=== PATIENT | female | born 1935 | race Caucasian/White ===

== ENCOUNTER 2020-10-17 09:54 | Inpatient (IN) | payer BC ==
[2020-10-17 10:00] VITALS: BMI 19.5
[2020-10-17] MEDS ORDERED: MECLIZINE HCL 25 MG TABLET (FP) PO ONE (11:00)
[2020-10-17 11:08] LABS: BASO % 1.4 % (0-2.0); EOS % 0.3 % (0-4.5); HEMATOCRIT 30.7 % (32.4-45.2); HEMOGLOBIN 10.2 GM/dL (10.7-15.3); LYMPH % 17.6 % (8-40); MCH 25.3 pg (25.7-33.7); MCHC 33.1 g/dl (32.0-36.0); MEAN CELL VOLUME 76.2 fl (80-96); MEAN PLT VOLUME 7.2 fl (7.5-11.1); MONO % 5.9 % (3.8-10.2); NEUT % 74.8 % (42.8-82.8); PLATELET COUNT 393 K/MM3 (134-434); RBC 4.03 M/mm3 (3.60-5.2); RDW 16.3 % (11.6-15.6)
[2020-10-17 11:26] LABS: CHLORIDE 102 mmol/L (98-107); POTASSIUM 4.1 mmol/L (3.5-5.1); SODIUM 137 mmol/L (136-145)
[2020-10-17 11:28] LABS: CALCIUM 9.6 mg/dL (8.5-10.1)
[2020-10-17 11:29] LABS: ALBUMIN 3.2 g/dl (3.4-5.0); ANION GAP 8 MMOL/L (8-16); BLOOD UREA NITROGEN 22.7 mg/dL (7-18); CO2 26 mmol/L (21-32); GLUCOSE,RANDOM 74 mg/dL (74-106); MAGNESIUM 1.8 mg/dL (1.8-2.4)
[2020-10-17 11:32] LABS: CREATININE 0.4 mg/dL (0.55-1.3); PHOSPHOROUS 3.3 mg/dL (2.5-4.9); SGOT/AST 10 U/L (15-37); SGPT/ALT 11 U/L (13-61)
[2020-10-17 11:33] LABS: BILIRUBIN,TOTAL 0.4 mg/dL (0.2-1); TOT PROT 7.3 g/dl (6.4-8.2)
[2020-10-17 11:34] LABS: ALK PHOS 95 U/L (45-117)
[2020-10-17] MEDS ORDERED: MECLIZINE HCL 25 MG TABLET (FP) ONE (11:35)
[2020-10-17] MEDS ORDERED: ACETAMINOPHEN 325 MG TABLET (FP) PO PRN (16:32)
[2020-10-17] MEDS ORDERED: SODIUM CHLORIDE 1,000 ML IV SCH (16:45)
[2020-10-17] MEDS ORDERED: MECLIZINE HCL 12.5 MG TABLET PO PRN (16:46)
[2020-10-17] MEDS ORDERED: ATORVASTATIN CA 10 MG TABLET (FP) PO SCH (22:00)
[2020-10-17] MEDS ORDERED: HEPARIN NA (PORCINE) 5,000 UNITS/ML 1ML VIAL ONE (22:12)
[2020-10-17] MEDS ORDERED: ATORVASTATIN CA 10 MG TABLET (FP) ONE (22:12)
[2020-10-17] MEDS: HEPARIN NA (PORCINE) 5,000 UNITS/ML 1ML VIAL SQ SCH (22:35)
[2020-10-18 06:30] LABS: HEMATOCRIT 28.2 % (32.4-45.2); HEMOGLOBIN 9.4 GM/dL (10.7-15.3); MCH 25.2 pg (25.7-33.7); MCHC 33.3 g/dl (32.0-36.0); MEAN CELL VOLUME 75.8 fl (80-96); MEAN PLT VOLUME 6.8 fl (7.5-11.1); PLATELET COUNT 377 K/MM3 (134-434); RBC 3.72 M/mm3 (3.60-5.2); WHITE BLOOD COUNT 8.5 K/mm3 (4.0-10.0)
[2020-10-18 06:49] LABS: POTASSIUM 4.1 mmol/L (3.5-5.1)
[2020-10-18 06:54] LABS: BLOOD UREA NITROGEN 19.9 mg/dL (7-18); CALCIUM 9.1 mg/dL (8.5-10.1)
[2020-10-18 06:57] LABS: CREATININE 0.4 mg/dL (0.55-1.3)
[2020-10-18] MEDS ORDERED: HEPARIN NA (PORCINE) 5,000 UNITS/ML 1ML VIAL ONE (09:31)
[2020-10-18] MEDS ORDERED: VALSARTAN 80 MG TABLET ONE (09:31)
[2020-10-18] MEDS ORDERED: VALSARTAN 80 MG TABLET PO SCH (10:00)
[2020-10-18] MEDS: HEPARIN NA (PORCINE) 5,000 UNITS/ML 1ML VIAL SQ SCH (12:38)
[2020-10-18 12:39] VITALS: BP 137/82; PULSE 82; TEMP 98.1
== END 2020-10-18 13:00 | disposition home or self-care (01) | DRG 149 ==
LOC: JER 09:54 → JERBED 13:02
PROVIDERS: ADMIT Internal Medicine; ATTEND Internal Medicine
DX: H81.10 Benign paroxysmal vertigo, unspecified ear (principal); I10 Essential (primary) hypertension; E78.5 Hyperlipidemia, unspecified; D64.9 Anemia, unspecified
CPT/HCPCS: 36415; 70450-TC; 70551-TC; 71045-TC-FY; 80048; 80053; 82378; 82550; 82728; 83540; 83550; 83735; 84100; 84443; 84484; 85025; 85027; 93005; 93010; 99285-25; C9803; J1644; U0003; U0005